=== PATIENT | female | born 1980 | race Caucasian/White ===

== ENCOUNTER 2017-09-23 06:04 | Observation (INO) | payer OTHER ==
[~2017-09-23 06:04] MED LIST: Buffered Lidocaine 0.9% SYRIN* 5 ML/SYR SYRINGE INTRADERM ONE; Famotidine TAB* 20 MG PO ONE
[2017-09-23] MEDS ORDERED: Famotidine IV* 10 MG/ML 2 ML (20 mg) ONE (06:44)
[2017-09-23] MEDS ORDERED: Clindamycin 900 MG IVPREMIX(* 900 MG/50 ML SDV IV ONE (06:44)
[2017-09-23] MEDS ORDERED: Bacitracin IV* 50,000 UNITS INJ ONE (06:57)
[2017-09-23] MEDS ORDERED: Thrombin 5,000 UNITS* 1 APPLIC KIT - topical use - TOPICAL ONE (06:57)
[2017-09-23] MEDS ORDERED: Lidocaine 1% MPF wEPI 200,000* 30 ML SDV ONE (06:57)
[2017-09-23] MEDS ORDERED: Lidocaine 2% PF * 5 ML VIAL ONE (07:11)
[2017-09-23] MEDS ORDERED: Propofol* 10 MG/ML 20 ML BTL IV PUSH ONE (07:11)
[2017-09-23] MEDS ORDERED: Dexamethasone IV* 4 MG/ML 1 ML (4 MG) ONE (07:11)
[2017-09-23] MEDS ORDERED: Ondansetron ODT TAB* 4 MG ONE (07:11)
[2017-09-23] MEDS ORDERED: Artificial Tear OPHTH.OINT* 3.5 GM ONE (07:12)
[2017-09-23] MEDS ORDERED: Midazolam* 1 MG/ML 5 ML VIAL (5 MG) ONE (07:12)
[2017-09-23] MEDS ORDERED: Cisatracurium* 2 MG/ML MDV 5 ML ONE (07:12)
[2017-09-23] MEDS ORDERED: fentaNYL* 50 MCG/ML 2 ML VIAL (100 MCG VIAL) ONE ×2 (07:12→09:18)
[2017-09-23] MEDS ORDERED: EPHEDrine (Pressors)* 50 MG/ML VIAL ONE (08:12)
[2017-09-23] MEDS ORDERED: VASOPRESSIN 20 UNITS/ML 1 ML VIAL ONE (08:23)
[2017-09-23] MEDS ORDERED: Ondansetron ODT TAB* 4 MG PO PRN (08:31)
[2017-09-23] MEDS ORDERED: Naloxone* 0.4 MG/ML 1 ML VIAL IV PRN (08:31)
[2017-09-23] MEDS ORDERED: HYDROcodone/ACETAMIN 5-325 MG* 1 TAB PO PRN (08:58)
[2017-09-23] MEDS ORDERED: Acetaminophen TAB* 325 MG PO PRN (08:58)
[2017-09-23] MEDS ORDERED: Magnesium Hydroxide LIQ* 30 ML UDC PO PRN (08:58)
[2017-09-23] MEDS ORDERED: Ondansetron 40 MG VIAL* 2 MG/ML 20 ML VIAL IV PRN (08:58)
[2017-09-23] MEDS ORDERED: Lisinopril TAB* 5 MG PO SCH (09:00)
[2017-09-23] MEDS ORDERED: VENLAFAXINE HCL 37.5 MG PO SCH (09:00)
[2017-09-23] MEDS ORDERED: Venlafaxine ER (NF) 150 MG CAP.ER PO SCH (09:00)
[2017-09-23] MEDS: fentaNYL* 50 MCG/ML 2 ML VIAL (100 MCG VIAL) IV PRN ×2 (09:22→09:45)
--- NOTE | 2017-09-23 10:31 | RAD ---
HISTORY: Lumbar discectomy COMPARISONS: September 03, 2017 VIEWS: 1 , single portable crosstable lateral view of the lumbar spine performed during spinal surgery FINDINGS: A single portable frontal view of the lumbar spine is submitted for review, performed at 8:10 AM. Counting from L5 as the last lumbar type vertebral body, a metallic probe is noted at L4-L5. IMPRESSION: LIMITED PORTABLE VIEW OF THE SPINE FOR LOCALIZATION DURING SPINAL SURGERY
[2017-09-23] MEDS ORDERED: HYDROcodone/ACETAMIN 5-325 MG* 1 TAB ONE (10:34)
[2017-09-23] MEDS ORDERED: Venlafaxine EXT RELEASE CAP* 37.5 MG PO SCH (10:47)
[2017-09-23 16:23] VITALS: BP 133/52
[2017-09-23] MEDS ORDERED: traZODone TAB* 100 MG PO SCH (21:00)
[2017-09-24] MEDS ORDERED: Venlafaxine EXT RELEASE CAP* 75 MG PO SCH (09:00)
--- NOTE | 2017-10-02 11:58 | OP ---
DATE OF OPERATION: 09/23/17 - ROOM #[id number] DATE OF : 84 SURGEON: Vincent Patel MD PREANALYTICS TEAM LEAD: MIREILLE Noel ANESTHESIA: General. PRE-OP DIAGNOSIS: Herniated nucleus pulposus, L4-5, on the right. POST-OP DIAGNOSIS: Herniated nucleus pulposus, L4-5, on the right. OPERATIVE PROCEDURE: Lumbar discectomy, L4-5, on the right with microdissection. DESCRIPTION OF PROCEDURE: After satisfactory general anesthesia was obtained, the patient was placed on the operating table in the prone position with the chest supported on the Carmelo frame and the back slightly flexed. The lumbar region was then clipped, prepped, and draped in a sterile manner for lumbar laminectomy and skin incision outlined over L4 and L5. This incision was infiltrated with 1% Xylocaine with epinephrine, after which it was turned in sharply to the level of the lumbar fascia. The fascia was divided along the spinous processes of L4 and L5 and the paraspinal musculature was stripped away from these posterior elements using the periosteal elevator and monopolar cautery. An intraoperative x-ray was obtained verifying proper interspace localization after which a partial hemilaminectomy was carried out at L4-5 by removing the inferior aspect of the L4 lamina and medial aspect of the facet complex with a combination of the Midas Chito drill and Kerrison rongeurs. This was carried superiorly until the attachment of ligamentum flavum was taken down. Ligamentum flavum was then removed with the Kerrison as well. The operating microscope was then brought into the field and the remainder of the procedure done under microscopic visualization. Utilizing microdissection, epidural venous structures were coagulated and divided. Projecting beneath the L5 nerve root was noted to be a subscapular disk herniation. An opening was enlarged into the posterior longitudinal ligament and multiple fragments of disk material removed from beneath the nerve root. It was felt that a satisfactory decompression had been achieved. After assuring adequate hemostasis, the wound was thoroughly irrigated, after which a piece of Gelfoam was placed over the laminectomy defect. The fascia was then reapproximated with 0 Vicryl suture, the subcutaneous tissues closed with 3-0 Vicryl suture, and the skin closed with skin clips. The estimated blood loss was less than 50 cc and the final sponge, padding, and needle counts were correct. The patient was taken to the recovery room, extubated, and in stable condition. [id number]/[facility] #: [id number] LEWIS
--- NOTE | 2017-10-14 04:31 | DS ---
DISCHARGE SUMMARY: DATE OF ADMISSION: 09/23/17 DATE OF DISCHARGE: 09/23/17 ATTENDING SURGEON: Vincent Patel MD * (DICTATED BY MIREILLE SAVAGE) DISCHARGE DIAGNOSES: 1. Herniated nucleus pulposus, L4-5, on the right. 2. Hypertension. SPECIAL PROCEDURE: Lumbar diskectomy, L4-5, on the right. HOSPITAL COURSE: This 37-year-old female was seen in office for the right lower extremity numbness and low back pain. Symptoms worsened after a fall. She had already been scheduled for surgery. On the day of admission, she was taken to surgery and under general anesthesia, a lumbar diskectomy L4-5 on the right operation was carried out. Postoperatively, she is doing very well. She is ambulating independently. She is eating, drinking, and voiding without difficulty. Incisional back pain was well controlled with oral pain medication. On the day of surgery she was discharged home to the care of her mother and boyfriend. DISCHARGE INSTRUCTIONS: Wound care and activity level were discussed with the patient. DISCHARGE MEDICATIONS: Pe Ell 5/325 mg 2 tabs by mouth every 4 hours as needed for pain. DISCHARGE FOLLOWUP: This patient will be seen in followup in approximately 10 days. MIREILLE SAVAGE [id number]/[facility] #: [id number] MTDMax
== END 2017-09-23 17:30 | disposition home or self-care (01) ==
LOC: OR 06:04 → SSU 08:58
PROVIDERS: ADMIT Neurological Surgery; ATTEND Neurological Surgery
PROC: 0ST20ZZ Resection of Lumbar Vertebral Disc, Open Approach (ICD-10-PCS; 2017-09-23)
PROC: 01NB0ZZ Release Lumbar Nerve, Open Approach (ICD-10-PCS; principal; 2017-09-23 07:30)
DX: M51.26 Other intervertebral disc displacement, lumbar region (principal); M54.5 Low back pain; M25.551 Pain in right hip; R20.0 Anesthesia of skin
CPT/HCPCS: 72100; 81025; 96374; 96375; A9270-GY; G0378; J1100; J2001; J2250; J2704; J3010

== ENCOUNTER 2018-03-24 06:05 | Day surgery (SDC) | payer OTHER ==
[~2018-03-24 06:05] MED LIST changes: +Famotidine IV* 10 MG/ML 2 ML (20 mg) IV ONE; -Famotidine TAB* 20 MG PO ONE
[2018-03-24] MEDS ORDERED: Famotidine IV* 10 MG/ML 2 ML (20 mg) ONE (06:41)
[2018-03-24] MEDS ORDERED: Bacitracin IV* 50,000 UNITS INJ ONE (06:48)
[2018-03-24] MEDS ORDERED: Thrombin 5,000 UNITS* 1 APPLIC KIT - topical use - TOPICAL ONE ×2 (06:48→09:22)
[2018-03-24] MEDS ORDERED: Lidocain 1% EPI 1:100,000 * 30 ML MDV ONE (06:48)
[2018-03-24] MEDS ORDERED: fentaNYL* 50 MCG/ML 2 ML VIAL (100 MCG VIAL) ONE ×2 (07:12→09:50)
[2018-03-24] MEDS ORDERED: Ondansetron INJ* 2 MG/ML VIAL ONE (07:12)
[2018-03-24] MEDS ORDERED: Lidocaine 2% PF * 5 ML VIAL ONE (07:12)
[2018-03-24] MEDS ORDERED: Dexamethasone IV* 4 MG/ML 1 ML (4 MG) ONE (07:12)
[2018-03-24] MEDS ORDERED: Propofol* 10 MG/ML 20 ML BTL ONE (07:12)
[2018-03-24] MEDS ORDERED: KETAMINE HCL* 50 MG/ML 10 ML VIAL ONE (07:13)
[2018-03-24] MEDS ORDERED: Midazolam* 1 MG/ML 5 ML VIAL (5 MG) ONE (07:13)
[2018-03-24] MEDS ORDERED: Cisatracurium* 2 MG/ML MDV 5 ML ONE (07:13)
[2018-03-24] MEDS ORDERED: Artificial Tear OPHTH.OINT* 3.5 GM ONE (07:13)
[2018-03-24] MEDS ORDERED: Clindamycin 900 MG/D5W BAG(*) 900 MG/50 ML BAG IVPB ONE (07:36)
[2018-03-24] MEDS ORDERED: EPHEDrine (Pressors)* 50 MG/ML VIAL ONE (08:17)
[2018-03-24] MEDS ORDERED: Naloxone* 0.4 MG/ML 1 ML VIAL IV PRN (08:30)
[2018-03-24] MEDS ORDERED: Ondansetron INJ* 2 MG/ML VIAL IV PRN ×2 (08:30→09:48)
[2018-03-24] MEDS ORDERED: Acetaminophen TAB* 325 MG PO PRN (09:48)
[2018-03-24] MEDS ORDERED: HYDROcodone/ACETAMIN 5-325 MG* 1 TAB PO PRN (09:48)
[2018-03-24] MEDS ORDERED: Magnesium Hydroxide LIQ* 30 ML UDC PO PRN (09:48)
[2018-03-24] MEDS: fentaNYL* 50 MCG/ML 2 ML VIAL (100 MCG VIAL) IV PRN ×2 (09:52→10:28)
[2018-03-24] MEDS ORDERED: Acetaminophen TAB* 325 MG ONE (10:02)
[2018-03-24] MEDS ORDERED: Nicotine Inhaler* 10 MG AMP INH PRN (11:20)
[2018-03-24] MEDS ORDERED: Nicotine PATCH 21 MG/24 HR* PATCH TRANSDERM SCH (12:00)
[2018-03-24] MEDS ORDERED: Mouth Piece, Nicotine* 1 EACH CARTRIDGE INH ONE (12:00)
[2018-03-24 15:26] VITALS: BP 136/74
[2018-03-24] MEDS ORDERED: traZODone TAB* 100 MG PO SCH (21:00)
[2018-03-24] MEDS ORDERED: Nicotine Patch Removal NOTE PATCH OFF SCH (21:00)
[2018-03-25] MEDS ORDERED: Venlafaxine EXT RELEASE CAP* 75 MG PO SCH (09:00)
[2018-03-25] MEDS ORDERED: Lisinopril TAB* 5 MG PO SCH (09:00)
--- NOTE | 2018-03-30 21:42 | OP ---
DATE OF OPERATION: 03/24/18 [facility] DATE OF : 84 SURGEON: Vincent Patel MD LABORATORY SCIENTIST: MIREILLE Noel ANESTHESIA: General. PRE-OP DIAGNOSIS: Herniated nucleus pulposus, L5-S1, on the left. POST-OP DIAGNOSIS: Herniated nucleus pulposus, L5-S1, on the left. OPERATIVE PROCEDURE: Partial hemilaminectomy L5-S1 on the left, excision of herniated nucleus pulposus with microdissection. DESCRIPTION OF PROCEDURE: After satisfactory general anesthesia was obtained, the patient was placed on the operating table in the prone position with the chest supported on the Carmelo frame and the back slightly flexed. The lumbar region was then clipped, prepped and draped in a sterile manner for a lumbar laminectomy and a skin incision outlined just below previous L4-5 incision, extending from L5 to the sacrum. This incision was infiltrated with 1% Xylocaine with epinephrine, after which it was turned down sharply to the level of the lumbar fascia. The fascia was divided along the spinous processes of the L5 and the sacrum and the paraspinal musculature stripped away from these posterior elements using the periosteal elevator and monopolar cautery. The L5- S1 level was identified by palpating the sacrum and moving up to first movable interspace. The inferior aspect of the L5 lamina and medial aspect of the facet complex was thinned out with a Midas Chito drill. Kerrison rongeurs were then used to complete a partial hemilaminectomy. This was carried superiorly until the attachment of the ligamentum flavum was taken down. The ligamentum flavum was then removed with a Kerrison. Additional inferior exposure was obtained by moving the superior aspect of the S1 sacral segment with a combination of Midas Chito drill and Kerrison rongeurs as preoperative imaging had suggested the inferior migration of the disc fragment. After generous foraminotomy had been performed over the S1 nerve root, operating microscope was brought to the field and the remainder of the procedure done under microscopic visualization. Projecting into the axillary region of the nerve root exposure, was freely extruded disc material. Multiple fragments of this were removed with hemostasis being obtained with temporary Gelfoam and the bipolar forceps. Ultimately, the disc space itself was entered and cleared off any loose disc material using pituitary forceps and curettes. After conclusion of the decompression, multiple fragments had been removed from over the initial sacral segment and the S1 nerve root was noted to be free in its course. After assuring adequate hemostasis, the wound was thoroughly irrigated, after which a piece of Gelfoam was placed over the laminectomy defect. The fascia was then reapproximated with 0 Vicryl suture. The subcutaneous tissues were closed with 3-0 Vicryl suture and the skin closed with skin clips. The estimated blood loss was less than 50 cc and the final sponge, carlos, and needle counts were correct. The patient was taken to the recovery room, extubated and in stable condition. [id number]/[facility] #: [id number] MTDMax
== END 2018-03-24 16:20 | disposition home or self-care (01) ==
LOC: OR 06:05 → SSU 09:48 → OR 16:20
PROVIDERS: ATTEND Neurological Surgery
DX: M51.26 Other intervertebral disc displacement, lumbar region (principal); I10 Essential (primary) hypertension; F17.210 Nicotine dependence, cigarettes, uncomplicated; F41.8 Other specified anxiety disorders; D68.51 Activated protein C resistance
CPT/HCPCS: A9270-GY; J1100; J2250; J2405; J2704; J3010